=== PATIENT | female | born 1955 | race Caucasian/White ===

== ENCOUNTER → 2019-12-18 | Outpatient (CLI) | payer OTHER, BC | LOC: SJCVC 16:00 | PROVIDERS: ATTEND Internal Medicine Cardiovascular Disease | DX: R94.31 Abnormal electrocardiogram [ECG] [EKG] (principal); I45.2 Bifascicular block; I25.10 Atherosclerotic heart disease of native coronary artery without angina pectoris; I10 Essential (primary) hypertension; E78.00 Pure hypercholesterolemia, unspecified; I25.5 Ischemic cardiomyopathy; Z95.1 Presence of aortocoronary bypass graft; Z79.899 Other long term (current) drug therapy; Z87.891 Personal history of nicotine dependence ==

== ENCOUNTER → 2020-01-22 | Outpatient (CLI) | payer OTHER, BC ==
[~2020-01-22] MED LIST: ASA81BEC PO; AVALIDE 300-121 EACH PO; COLACE100 MG PO; CRESTOR40 MG PO; DOLOGEN CAPLET1 EACH PO; TOPROL XL50 MG PO; TORSEMIDE20 MG PO; TRICOR145 MG PO; VASCEPA1 GM PO; VITAMIN B-121000 MC2
== END ==
LOC: SJCVCIMAG 07:39
PROVIDERS: ATTEND Internal Medicine Cardiovascular Disease
DX: I35.8 Other nonrheumatic aortic valve disorders (principal); I45.10 Unspecified right bundle-branch block; I49.3 Ventricular premature depolarization; I25.5 Ischemic cardiomyopathy; I25.10 Atherosclerotic heart disease of native coronary artery without angina pectoris; J81.1 Chronic pulmonary edema; I10 Essential (primary) hypertension; Z95.1 Presence of aortocoronary bypass graft; Z79.899 Other long term (current) drug therapy; Z87.891 Personal history of nicotine dependence

== ENCOUNTER → 2020-01-27 | Outpatient (CLI) | payer OTHER, BC ==
[~2020-01-27] VITALS: Ht 175.3 cm; Wt 109.8 kg
[2020-01-27 07:42] LABS: HEMATOCRIT 40.1 % (37.0-47.0); HEMOGLOBIN 13.7 gm/dL (12.0-15.0); MCH 31.4 pg (26.0-34.0); MCHC 34.2 g/dL (28.0-37.0); MCV 91.8 fL (80.0-100.0); RBC 4.37 mil/uL (4.20-5.00); RDW 12.8 % (10.5-14.5)
[2020-01-27 07:54] LABS: CALCIUM 9.2 mg/dL (8.5-10.1)
--- NOTE | 2020-01-27 07:55 | EKG ---
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: EDER : 1955 Requested By: Korey Gaona Order Number: [id number] MD: Filippo Carey Measurements Intervals [place] Rate: 77 P: 26 NC: 192 QRS: -44 QRSD: 166 T: 10 QT: 434 QTc: 492 Interpretive Statements Sinus rhythm RBBB and LAFB No previous ECG available for comparison Electronically Signed On 01-27-2020 7:54:51 CDT by Filippo Carey [email or web address] <ELECTRONICALLY SIGNED> By: Filippo Carey MD, [facility] 01/27/20 0754 0740 Filippo Carey MD, [facility] /EPI
--- NOTE | 2020-01-27 18:00 | CATHLAB ---
Formerly [facility] [place] [address] INVASIVE PROCEDURE REPORT Name: MALINI DEL RIO [facility] [id number] Admission: 01/27/20 Attend Phys: Korey Gaona MD, Discharge: Date of : 53 Report #: [id number] THIS REPORT FOR: cc: Ivania Hunter MD, Shreya MD Mancuso, Gerald M. MD [facility] ~ APPROVED REPORT Study performed: 01/27/2020 09:45:14 Patient Details Patient Status: Out-Patient Room #: The patient is a 64 year-old female Event Personnel Korey Gaona Scaling Machine Operator, Lexii Forman RN RN, Mendoza Silva RTR Scrub, Angela Hammer RTR Monitor, Lesly Kyle RTR Monitor Procedures Performed Art Access - R femoral artery* Left Heart Cath Coronaries, Bypass Grafts [id number] LHCCORCABG Aortogram Abdominal Peripheral Angio 781519 99330 Initial Mod Sed Same Phys/QHP Gr5y [id number] 05871 Mod Sed Same Phys/QHP Ea 909321 Hemostasis w/ Mynx Procedure Narrative The Right Groin^ was infiltrated with 1% Lidocaine subcutaneous anesthesia. A PINNACLE 6FR Sheath #[id number] sheath was inserted into the RFA^. Coronary angiography was performed using coronary diagnostic catheters. The right coronary system was accessed and visualized with a JR4 catheter. The left coronary system was accessed and visualized with a JL4 catheter. The left ventricle was accessed and visualized with a PIGTAIL catheter. Left ventriculogram was performed in 30 degree projection. An aortogram of the abdominal aorta was performed. Pre-demployment femoral angiogram was performed . Closure device was deployed with a Fr MYNXGRIP 6/7F #[id number]. The patient tolerated the procedure well and there were no complications associated with the procedure. There was no hematoma. Intraoperative Conscious Sedation Sedation start time: 10:29 Case end Time: 11:06 Fentanyl 50 mcg Versed [address] [address] INVASIVE PROCEDURE REPORT Name: MALINI DEL RIO Sue [facility] [id number] Admission: 01/27/20 Attend Phys: Korey Gaona, Discharge: Date of : 53 Report #: [id number] Fluoro Time: 6.30 minutes Dose: DAP 44664.80 cGycm2 1649 mGy Contrast Type and Amount: Omnipaque 210 ml Hemodynamics The aortic pressure is 113/55 mmHg with a mean of 83 mmHg. The left ventricular pressure is 110/5 mmHg with a mean of mmHg. The left ventricular end diastolic pressure is 35 mmHg. Conclusion 1. 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 Renal arteries mildly diseased. #3 left main long and free of disease giving rise to LAD and circumflex #4 LAD is moderately calcified and moderately diseased 4050% proximal and diffuse distal disease wraps around the apex. There is some minimal collateral filling from in a somewhat of an atretic GUERIN graft. There is also brisk filling of what appears to be a posterior lateral branch in the inferior posterior wall via the LAD. Diagonal branch also moderately diseased but widely patent otherwise #5 the circumflex is small system the first OM is occluded and fills via bypass graft there is no 7 can supply via the cabazon circumflex. #6 atretic GUERIN providing minimal flow to the LAD. Predominantly filled via the cabazon circulation. 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 Some retrograde filling of the posterior lateral branch in addition #8 a radial graft to an OM system is widely patent. There appears to have been a smaller jump graft to a diagonal which is occluded. Recommendations and plan: Continue aggressive risk factor modification no indication for coronary intervention. We have correlation with nuclear stress team to follow. No indication for intervention. Will obtain aortoiliac ultrasound to evaluate the saccular aortic aneurysm. <ELECTRONICALLY SIGNED> By: Korey Gaona MD, FACC 01/27/201799 99 99 Korey Gaona MD, FACC /INF
== END | disposition home or self-care (01) ==
LOC: CATH 06:55
PROVIDERS: ATTEND Internal Medicine Cardiovascular Disease
DX: I25.810 Atherosclerosis of coronary artery bypass graft(s) without angina pectoris (principal); I71.4 Abdominal aortic aneurysm, without rupture; I10 Essential (primary) hypertension; E78.5 Hyperlipidemia, unspecified; I42.9 Cardiomyopathy, unspecified; Z98.890 Other specified postprocedural states; Z79.899 Other long term (current) drug therapy; Z95.1 Presence of aortocoronary bypass graft; Z87.891 Personal history of nicotine dependence; Z79.82 Long term (current) use of aspirin

== ENCOUNTER → 2020-02-19 | Outpatient (CLI) | payer OTHER, BC | LOC: SJCVCIMAG 11:11 | PROVIDERS: ATTEND Internal Medicine Cardiovascular Disease | DX: I71.4 Abdominal aortic aneurysm, without rupture (principal); Z87.891 Personal history of nicotine dependence ==

== ENCOUNTER → 2020-07-22 | Outpatient (CLI) | payer OTHER, BC | LOC: SJCVC 09:24 | PROVIDERS: ATTEND Internal Medicine Cardiovascular Disease | DX: R94.31 Abnormal electrocardiogram [ECG] [EKG] (principal); I45.10 Unspecified right bundle-branch block; I25.810 Atherosclerosis of coronary artery bypass graft(s) without angina pectoris; I25.5 Ischemic cardiomyopathy; E78.00 Pure hypercholesterolemia, unspecified; I71.4 Abdominal aortic aneurysm, without rupture; I11.0 Hypertensive heart disease with heart failure; I50.42 Chronic combined systolic (congestive) and diastolic (congestive) heart failure; E78.5 Hyperlipidemia, unspecified; E55.9 Vitamin D deficiency, unspecified; Z98.890 Other specified postprocedural states; Z95.1 Presence of aortocoronary bypass graft; Z88.8 Allergy status to other drugs, medicaments and biological substances; Z79.82 Long term (current) use of aspirin; Z79.899 Other long term (current) drug therapy; Z86.16 Personal history of COVID-19; Z87.891 Personal history of nicotine dependence; Z82.49 Family history of ischemic heart disease and other diseases of the circulatory system ==

== ENCOUNTER → 2021-04-13 | Outpatient (CLI) | payer OTHER, BC | LOC: SJCVCIMAG 07:16 | PROVIDERS: ATTEND Internal Medicine Cardiovascular Disease | DX: R94.31 Abnormal electrocardiogram [ECG] [EKG] (principal); I45.10 Unspecified right bundle-branch block; I71.4 Abdominal aortic aneurysm, without rupture; I25.810 Atherosclerosis of coronary artery bypass graft(s) without angina pectoris; I25.5 Ischemic cardiomyopathy; I10 Essential (primary) hypertension; E78.1 Pure hyperglyceridemia; I25.10 Atherosclerotic heart disease of native coronary artery without angina pectoris; E78.5 Hyperlipidemia, unspecified; E55.9 Vitamin D deficiency, unspecified; E53.8 Deficiency of other specified B group vitamins; Z95.1 Presence of aortocoronary bypass graft; Z86.16 Personal history of COVID-19; Z87.891 Personal history of nicotine dependence; Z79.82 Long term (current) use of aspirin; Z79.899 Other long term (current) drug therapy; Z72.89 Other problems related to lifestyle; Z88.1 Allergy status to other antibiotic agents ==